=== PATIENT | male | born 1935 | race Caucasian/White ===

== ENCOUNTER 2021-12-01 00:27 | Inpatient (IN) | payer MEDICARE ==
[~2021-12-01] VITALS: Ht 177.8 cm; Wt 93.4 kg
[2021-12-01] MEDS ORDERED: VANCOMYCIN 1G PREMIX 200 ML IV SCH ×2 (03:00→13:15)
[2021-12-01] MEDS ORDERED: PIPERACILLIN/TAZOBACTAM 3.375GM/50ML PREMIX IV ONE (03:15)
[2021-12-01] MEDS ORDERED: PIPERACILLIN/TAZ 3.375G PREMIX 50 ML IV NR (03:30)
[2021-12-01 03:34] LABS: BASOPHILS % 0.6 % (0.0-2.0); EOSINOPHILS % 0.7 % (0.0-5.0); HEMOGLOBIN. 13.3 g/dL (14.0-18.0); LYMPHOCYTES % 10.9 % (20.0-50.0); MEAN CORPUSCULAR HEMOGLOBIN 28.8 pg (28.0-32.0); MEAN CORPUSCULAR VOLUME 88.7 fL (80.0-94.0); MONOCYTES % 11.2 % (2.0-8.0); NEUTROPHILS % 76.6 % (40.0-76.0); PLATELET 129 x1000/uL (130-400); RED BLOOD CELL COUNT 4.63 mill/uL (4.7-6.1); RED CELL DISTRIBUTION WIDTH 16.9 % (11.6-14.6)
[2021-12-01 03:46] LABS: CHLORIDE 90 mEq/L (98-107)
[2021-12-01] MEDS ORDERED: FUROSEMIDE 100MG/10ML VIAL IV NR (04:11)
[2021-12-01] MEDS ORDERED: DEXTROSE 50% WATER 50ML SYRINGE IV NR (04:15)
[2021-12-01] MEDS ORDERED: ALBUTEROL (0.083%) 2.5MG/3ML NEB HHN NR (04:15)
[2021-12-01] MEDS ORDERED: SODIUM BICARBONATE 8.4% 1 MEQ/ML 50ML SYR IV NR (04:15)
[2021-12-01] MEDS ORDERED: INSULIN REGULAR (HUMULIN R) 300UNITS/3ML VIAL IV NR (04:15)
[2021-12-01] MEDS ORDERED: CALCIUM CHLORIDE 1GM/10ML SYR IV NR (04:15)
[2021-12-01] MEDS ORDERED: ACETAMINOPHEN 325MG TABLET PO PRN (13:15)
[2021-12-01] MEDS ORDERED: IPRATROPIUM/ALBUTEROL 0.5-3(2.5)MG/3ML NEB HHN PRN (13:15)
[2021-12-01] MEDS ORDERED: ONDANSETRON HCL 4MG/2ML INJ IV PRN (13:15)
[2021-12-01] MEDS ORDERED: HYDROCODONE/ACETAMINOPHEN 5/325MG TABLET PO PRN (13:15)
[2021-12-01] MEDS ORDERED: NALOXONE HCL 0.4MG/ML VIAL IV PRN (13:15)
[2021-12-01] MEDS ORDERED: LEVOFLOXACIN 750MG PREMIX 150 ML IV NR (13:30)
[2021-12-01] MEDS: ENOXAPARIN 40MG/0.4ML SYR SUBCUT SCH (14:22)
[2021-12-01 14:47] LABS: CHLORIDE 90 mEq/L (98-107)
[2021-12-01 14:55] LABS: CREATINE KINASE 192 IU/L (39-308)
[2021-12-01 17:00] VITALS: BP 125/83
[2021-12-01 17:33] VITALS: BP 125/83
[2021-12-01] MEDS ORDERED: CALC-38 MT (18:59)
[2021-12-01] MEDS ORDERED: OMEG-161 PO (18:59)
[2021-12-01] MEDS ORDERED: ATOR20TA65 MT (18:59)
[2021-12-01] MEDS ORDERED: TAMS-11 PO (18:59)
[2021-12-01] MEDS ORDERED: METF-414 MT (18:59)
[2021-12-01] MEDS ORDERED: *PATIENT'S OWN MEDICATION STORAGE XX SCH (19:45)
[2021-12-01 20:00] VITALS: BP 113/76
[2021-12-01] MEDS: VANCOMYCIN 750MG PREMIX 150 ML IV SCH (20:12)
[2021-12-01] MEDS: HALOPERIDOL LACTATE 5MG/ML VIAL IM PRN ×2 (23:06→23:09)
[2021-12-02] VITALS: BP 115/80
[2021-12-02 00:54] LABS: CREATINE KINASE 384 IU/L (39-308); T4 FREE 1.15 ng/dL (0.76-1.46)
[2021-12-02 04:00] VITALS: BP 102/69
[2021-12-02 06:54] LABS: BASOPHILS % 0.6 % (0.0-2.0); EOSINOPHILS % 2.7 % (0.0-5.0); HEMATOCRIT. 39.1 % (42.0-52.0); HEMOGLOBIN. 12.8 g/dL (14.0-18.0); LYMPHOCYTES % 11.7 % (20.0-50.0); MEAN CORPUSCULAR HEMOGLOBIN 28.6 pg (28.0-32.0); MEAN CORPUSCULAR VOLUME 86.9 fL (80.0-94.0); MEAN PLATELET VOLUME 9.9 fl (7.4-10.4); MONOCYTES % 13.3 % (2.0-8.0); NEUTROPHILS % 71.7 % (40.0-76.0); PLATELET 144 x1000/uL (130-400); RED BLOOD CELL COUNT 4.49 mill/uL (4.7-6.1); RED CELL DISTRIBUTION WIDTH 17.2 % (11.6-14.6)
[2021-12-02 08:00] VITALS: BP 122/57
[2021-12-02 08:04] LABS: CHLORIDE 85 mEq/L (98-107)
[2021-12-02 08:15] LABS: HDL CHOLESTEROL 46 mg/dL (40-59); LDL CHOLESTEROL 63 mg/dL (5-100); T4 FREE 1.25 ng/dL (0.76-1.46)
[2021-12-02 12:00] VITALS: BP 114/61
[2021-12-02] MEDS: ENOXAPARIN 40MG/0.4ML SYR SUBCUT SCH (12:50)
[2021-12-02] MEDS: LEVOFLOXACIN 500MG PREMIX 100 ML IV SCH ×2 (12:50→13:01)
[2021-12-02 16:00] VITALS: BP 104/63
[2021-12-02] MEDS: VANCOMYCIN 750MG PREMIX 150 ML IV SCH (18:36)
[2021-12-02 20:00] VITALS: BP 123/89
[2021-12-02] MEDS: FUROSEMIDE 40MG/4ML VIAL IVP SCH (20:15)
[2021-12-02] MEDS: FAMOTIDINE 20MG TABLET PO SCH (20:15)
[2021-12-03] VITALS: BP 112/77
[2021-12-03 04:00] VITALS: BP 114/62
[2021-12-03] MEDS: VANCOMYCIN 750MG PREMIX 150 ML IV SCH ×3 (05:05→22:41)
[2021-12-03 06:10] LABS: CHLORIDE 84 mEq/L (98-107)
[2021-12-03 07:21] LABS: BASOPHILS % 0.8 % (0.0-2.0); EOSINOPHILS % 2.7 % (0.0-5.0); HEMATOCRIT. 40.2 % (42.0-52.0); HEMOGLOBIN. 13.5 g/dL (14.0-18.0); LYMPHOCYTES % 13.8 % (20.0-50.0); MEAN CORPUSCULAR HEMOGLOBIN 28.8 pg (28.0-32.0); MEAN CORPUSCULAR VOLUME 86.1 fL (80.0-94.0); MEAN PLATELET VOLUME 10.4 fl (7.4-10.4); MONOCYTES % 11.5 % (2.0-8.0); NEUTROPHILS % 71.2 % (40.0-76.0); PLATELET 140 x1000/uL (130-400); RED BLOOD CELL COUNT 4.68 mill/uL (4.7-6.1)
[2021-12-03 08:00] VITALS: BP 134/88
[2021-12-03] MEDS: FUROSEMIDE 40MG/4ML VIAL IVP SCH (10:19)
[2021-12-03] MEDS ORDERED: SODIUM CHLORIDE 0.9% 500 ML IV ONE (10:30)
[2021-12-03 12:00] VITALS: BP 118/86
[2021-12-03] MEDS: SPIRONOLACTONE 25MG TABLET PO SCH ×2 (12:45→17:22)
[2021-12-03] MEDS: ENOXAPARIN 40MG/0.4ML SYR SUBCUT SCH (14:00)
[2021-12-03 15:19] LABS: HEPATITIS B SURFACE ANTIGEN NEGATIVE
[2021-12-03 16:00] VITALS: BP 108/82
[2021-12-03] MEDS: LEVOFLOXACIN 500MG TABLET PO SCH (17:21)
[2021-12-03 20:00] VITALS: BP 103/84
[2021-12-03 20:17] LABS: CLARITY URINE CLEAR (CLEAR); COLOR URINE YELLOW (YELLOW); KETONES URINE NEGATIVE (NEGATIVE); LEUKOCYTE ESTERASE URINE NEGATIVE (NEGATIVE); NITRITE URINE NEGATIVE (NEGATIVE); OCCULT BLOOD URINE 1+ (NEGATIVE); PH URINE 5.5 (4.5-8.0); PROTEIN URINE NEGATIVE (NEGATIVE); SPECIFIC GRAVITY URINE 1.012 (1.005-1.030)
[2021-12-03] MEDS: FAMOTIDINE 20MG TABLET PO SCH (20:19)
[2021-12-03 20:28] LABS: CHLORIDE 84 mEq/L (98-107)
[2021-12-03 20:35] LABS: INR 1.4; PROTHROMBIN TIME 15.1 sec (9.6-11.0)
[2021-12-03] MEDS: DIPHENHYDRAMINE 50MG/ML VIAL IV SCH (20:51)
[2021-12-03 21:00] LABS: SODIUM URINE RANDOM 37 mEq/L
[2021-12-04] VITALS: BP 127/79
[2021-12-04 08:00] VITALS: BP 133/91
[2021-12-04] MEDS: VANCOMYCIN 750MG PREMIX 150 ML IV SCH ×2 (08:40→22:25)
[2021-12-04] MEDS: SPIRONOLACTONE 25MG TABLET PO SCH ×2 (08:41→17:22)
[2021-12-04] MEDS: FUROSEMIDE 40MG/4ML VIAL IVP SCH (08:41)
[2021-12-04 10:45] LABS: BASOPHILS % 0.7 % (0.0-2.0); EOSINOPHILS % 1.9 % (0.0-5.0); HEMATOCRIT. 39.4 % (42.0-52.0); HEMOGLOBIN. 13.1 g/dL (14.0-18.0); LYMPHOCYTES % 15.2 % (20.0-50.0); MEAN CORPUSCULAR HEMOGLOBIN 28.7 pg (28.0-32.0); MEAN CORPUSCULAR VOLUME 86.6 fL (80.0-94.0); MEAN PLATELET VOLUME 10.2 fl (7.4-10.4); MONOCYTES % 12.7 % (2.0-8.0); NEUTROPHILS % 69.5 % (40.0-76.0); PLATELET 137 x1000/uL (130-400); RED BLOOD CELL COUNT 4.55 mill/uL (4.7-6.1); RED CELL DISTRIBUTION WIDTH 16.9 % (11.6-14.6)
[2021-12-04 10:53] LABS: CHLORIDE 85 mEq/L (98-107)
[2021-12-04 12:00] VITALS: BP 123/84
[2021-12-04] MEDS: LEVOFLOXACIN 500MG TABLET PO SCH (12:24)
[2021-12-04 13:51] LABS: BG BASE EXCESS 5.5 mmol/L (-2.0-2.0); BG CARBOXYHEMOGLOBIN 0.9 % (0.5-1.5); BG FRACTION INSPIRED OXYGEN 21; BG HCO3 ACT 29.8 mmol/L (22.0-26.0); BG METHEMOGLOBIN 0.3 % (0.0-1.5); BG OXYHEMOGLOBIN 94.8 % (94.0-97.0); BG PCO2 42.5 mmHg (35.0-45.0); BG PH 7.464 (7.350-7.450); BG SAMPLE SITE RIGHT RADIAL; BG TOTAL HEMOGLOBIN 13.6 g/dL (12.0-18.0); BG VENT MODE ROOM AIR
[2021-12-04 16:00] VITALS: BP 117/87
[2021-12-04 20:00] VITALS: BP 122/80
[2021-12-04] MEDS: IPRATROPIUM/ALBUTEROL 0.5-3(2.5)MG/3ML NEB HHN SCH (21:20)
[2021-12-04] MEDS: FAMOTIDINE 20MG TABLET PO SCH (22:25)
[2021-12-04] MEDS: DIPHENHYDRAMINE 50MG/ML VIAL IV SCH (22:25)
[2021-12-05] VITALS: BP 112/75
[2021-12-05] MEDS: IPRATROPIUM/ALBUTEROL 0.5-3(2.5)MG/3ML NEB HHN SCH ×4 (01:11→22:10)
[2021-12-05 04:00] VITALS: BP 109/72
[2021-12-05 06:33] LABS: BASOPHILS % 0.6 % (0.0-2.0); EOSINOPHILS % 3.2 % (0.0-5.0); HEMATOCRIT. 43.4 % (42.0-52.0); HEMOGLOBIN. 14.4 g/dL (14.0-18.0); LYMPHOCYTES % 13.6 % (20.0-50.0); MEAN CORPUSCULAR HEMOGLOBIN 28.8 pg (28.0-32.0); MEAN CORPUSCULAR VOLUME 87.1 fL (80.0-94.0); MONOCYTES % 9.3 % (2.0-8.0); NEUTROPHILS % 73.3 % (40.0-76.0); PLATELET 135 x1000/uL (130-400); RED BLOOD CELL COUNT 4.98 mill/uL (4.7-6.1); RED CELL DISTRIBUTION WIDTH 16.9 % (11.6-14.6)
[2021-12-05 08:00] VITALS: BP 109/76
[2021-12-05] MEDS: FUROSEMIDE 40MG/4ML VIAL IVP SCH (09:27)
[2021-12-05] MEDS: SPIRONOLACTONE 25MG TABLET PO SCH ×2 (09:28→18:31)
[2021-12-05] MEDS: VANCOMYCIN 750MG PREMIX 150 ML IV SCH ×2 (09:35→21:28)
[2021-12-05] MEDS ORDERED: SODIUM BICARBONATE 4% (2.4MEQ) 5ML VIAL IV ONE (10:02)
[2021-12-05 10:04] LABS: CHLORIDE 85 mEq/L (98-107)
[2021-12-05 12:00] VITALS: BP 104/70
[2021-12-05] MEDS: LEVOFLOXACIN 500MG TABLET PO SCH (13:36)
[2021-12-05 16:00] VITALS: BP 111/69
[2021-12-05 20:00] VITALS: BP 125/75
[2021-12-05] MEDS: DIPHENHYDRAMINE 50MG/ML VIAL IV SCH (21:28)
[2021-12-05] MEDS: FAMOTIDINE 20MG TABLET PO SCH (21:28)
[2021-12-06] VITALS: BP 108/65
[2021-12-06] MEDS: IPRATROPIUM/ALBUTEROL 0.5-3(2.5)MG/3ML NEB HHN SCH ×4 (02:07→21:30)
[2021-12-06 04:00] VITALS: BP 113/75
[2021-12-06 08:00] VITALS: BP 105/71
[2021-12-06] MEDS: SPIRONOLACTONE 25MG TABLET PO SCH ×2 (09:08→17:14)
[2021-12-06] MEDS: FUROSEMIDE 40MG/4ML VIAL IVP SCH (09:08)
[2021-12-06] MEDS: VANCOMYCIN 750MG PREMIX 150 ML IV SCH ×2 (09:09→22:04)
[2021-12-06] MEDS: LEVOFLOXACIN 500MG TABLET PO SCH (10:14)
[2021-12-06 12:00] VITALS: BP 102/59
[2021-12-06 16:00] VITALS: BP 110/68
[2021-12-06 19:09] LABS: CHLORIDE 89 mEq/L (98-107)
[2021-12-06 20:00] VITALS: BP 95/59
[2021-12-06] MEDS: FAMOTIDINE 20MG TABLET PO SCH (21:59)
[2021-12-06] MEDS: DIPHENHYDRAMINE 50MG/ML VIAL IV SCH (22:00)
[2021-12-07 00:01] VITALS: BP 113/69
[2021-12-07] MEDS: IPRATROPIUM/ALBUTEROL 0.5-3(2.5)MG/3ML NEB HHN SCH ×3 (03:00→13:48)
[2021-12-07 04:00] VITALS: BP 107/70
[2021-12-07 08:00] VITALS: BP 119/71
[2021-12-07] MEDS: SPIRONOLACTONE 25MG TABLET PO SCH (08:49)
[2021-12-07] MEDS: FUROSEMIDE 40MG/4ML VIAL IVP SCH (08:49)
[2021-12-07 12:00] VITALS: BP 106/62
[2021-12-07] MEDS ORDERED: SPIR25TA PO (15:26)
[2021-12-07] MEDS ORDERED: FURO-151 MT (15:26)
[2021-12-07 15:28] VITALS: BP 115/69
[2021-12-07] MEDS ORDERED: APIX5TAB MT (15:28)
[2021-12-07] MEDS ORDERED: EMPA10TA MT (15:28)
[2021-12-07] MEDS ORDERED: LOSA25TA26 MT (15:28)
[2021-12-07] MEDS ORDERED: COR3 MT (15:28)
[2021-12-07 16:00] VITALS: BP 115/69
== END 2021-12-07 17:35 | disposition home health service (06) | DRG 432 ==
LOC: ER 00:48 → ENRESERV 15:38 → 8WST 16:54
PROVIDERS: ADMIT Internal Medicine; ATTEND Internal Medicine
PROC: 0W993ZZ Drainage of Right Pleural Cavity, Percutaneous Approach (ICD-10-PCS; principal; 2021-12-05)
DX: K70.9 Alcoholic liver disease, unspecified (principal); G93.41 Metabolic encephalopathy; I50.21 Acute systolic (congestive) heart failure; L03.116 Cellulitis of left lower limb; R18.8 Other ascites; E87.1 Hypo-osmolality and hyponatremia; J90 Pleural effusion, not elsewhere classified; L03.115 Cellulitis of right lower limb; I11.0 Hypertensive heart disease with heart failure; Z20.822 Contact with and (suspected) exposure to COVID-19; D64.9 Anemia, unspecified; I71.4 Abdominal aortic aneurysm, without rupture; E78.5 Hyperlipidemia, unspecified; E78.00 Pure hypercholesterolemia, unspecified; I48.91 Unspecified atrial fibrillation; N40.0 Benign prostatic hyperplasia without lower urinary tract symptoms; E11.9 Type 2 diabetes mellitus without complications; F10.10 Alcohol abuse, uncomplicated
CPT/HCPCS: 32555; 36415; 36600; 71045; 74176; 76705; 80048; 80053; 80061; 80202; 81003; 82375; 82533; 82550; 82805; 83036; 83880; 83930; 83935; 84300; 84439; 84443; 84484; 85025; 86705; 86709; 86803; 87340; 87426; 93005; 93306; 93923; 93970; 94640; 94644; 97116; 97162; 99285; J1200; J1630; J1650; J1815; J1940; J1956; J2543; J3370; J3490